=== PATIENT | male | born 1955 | race Caucasian/White ===

== ENCOUNTER 2018-01-19 17:42 | Inpatient (IN) | payer OTHER ==
[~2018-01-19] VITALS: Ht 190.5 cm; Wt 122.2 kg
[2018-01-19 20:43] LABS: BASOPHIL % 0.5 % (0-2); PLATELET COUNT 264 x10^3mcL (130-400); RED CELL DISTRIBUTION WIDTH 14.1 % (11.5-14.5)
[2018-01-19 21:04] LABS: AMPHETAMINE QUAL UR NONE DETECTED (NEG <=1000)
[2018-01-19 21:10] LABS: ALKALINE PHOSPHATASE 72 U/L (46-116); ALT/SGPT 30 U/L (16-63); AST/SGOT 24 U/L (15-37); BILIRUBIN TOTAL 1.04 mg/dL (0.20-1.00); CARBON DIOXIDE 28.9 mmol/L (21-32); CHLORIDE SERUM 100 mmol/L (98-107); CREATININE SERUM 1.1 mg/dL (0.7-1.3); GFR1 > 60 mL/min; GLUCOSE SERUM 134 mg/dL (74-106); SODIUM SERUM 141 mmol/L (136-145); TOTAL PROTEIN, SERUM 6.9 g/dL (6.4-8.2)
[2018-01-19 21:16] LABS: ALBUMIN 2.2 g/dL (3.4-5.0)
[2018-01-19 21:17] LABS: POTASSIUM SERUM 2.9 mmol/L (3.5-5.1)
[2018-01-19] MEDS ORDERED: GOOD SENSE OMEP20 MG PO (22:01)
[2018-01-19] MEDS ORDERED: LISINOPRIL40 MG PO (22:01)
[2018-01-19] MEDS ORDERED: HYDROCHLOROTHIA25 MG PO (22:01)
[2018-01-19] MEDS ORDERED: ASPIR 8181 MG PO (22:01)
[2018-01-19] MEDS ORDERED: CARVEDILOL25 M1 PO (22:02)
[2018-01-19] MEDS ORDERED: ATORVASTATIN CA40 M1 PO (22:02)
[2018-01-19] MEDS ORDERED: METFORMIN HYD1000 M2 PO (22:02)
[2018-01-19] MEDS ORDERED: DULERA1 AR3 INH (22:03)
[2018-01-19] MEDS ORDERED: NITROSTAT0.4 MG (22:04)
[2018-01-19] MEDS ORDERED: [UNRECOGNIZED DRUG - OTHER] PO (22:04)
[2018-01-19] MEDS ORDERED: APAP325 MG PO (22:04)
[2018-01-19] MEDS ORDERED: LYRICA75 M1 PO (22:05)
[2018-01-19] MEDS ORDERED: XOPENEX HF0.045 MG/1 INH (22:05)
[2018-01-19 23:33] VITALS: BP 144/91
[2018-01-19 23:44] VITALS: Ht 190.5 cm; Wt 122.2 kg
[2018-01-20] VITALS (9 sets, daily range): BP systolic 92–141; BP diastolic 65–88
[2018-01-20 06:21] LABS: BASOPHIL % 0.2 % (0-2); PLATELET COUNT 250 x10^3mcL (130-400); RED CELL DISTRIBUTION WIDTH 13.9 % (11.5-14.5)
[2018-01-20 06:46] LABS: ALKALINE PHOSPHATASE 67 U/L (46-116); ALT/SGPT 26 U/L (16-63); AST/SGOT 20 U/L (15-37); BILIRUBIN TOTAL 0.8 mg/dL (0.20-1.00); CALCIUM 8.7 mg/dL (8.5-10.1); CARBON DIOXIDE 29.2 mmol/L (21-32); CHLORIDE SERUM 100 mmol/L (98-107); CREATININE SERUM 1.2 mg/dL (0.7-1.3); GFR1 > 60 mL/min; GLUCOSE SERUM 132 mg/dL (74-106); POTASSIUM SERUM 3.1 mmol/L (3.5-5.1); SODIUM SERUM 139 mmol/L (136-145); TOTAL PROTEIN, SERUM 6.5 g/dL (6.4-8.2)
[2018-01-20 07:55] LABS: ERYTHROCYTE SED RATE 90 mm/hr (0-20)
[2018-01-21 05:48] LABS: BASOPHIL % 0.3 % (0-2); PLATELET COUNT 244 x10^3mcL (130-400); RED CELL DISTRIBUTION WIDTH 13.8 % (11.5-14.5)
[2018-01-21 06:03] LABS: CALCIUM 8.5 mg/dL (8.5-10.1); CARBON DIOXIDE 29.4 mmol/L (21-32); CHLORIDE SERUM 105 mmol/L (98-107); CREATININE SERUM 1.1 mg/dL (0.7-1.3); GFR1 > 60 mL/min; GLUCOSE SERUM 129 mg/dL (74-106); POTASSIUM SERUM 3.8 mmol/L (3.5-5.1); SODIUM SERUM 141 mmol/L (136-145)
[2018-01-21 06:36] VITALS: BP 138/89
[2018-01-21 09:07] LABS: RHEUMATOID ARTHRITIS FACTOR 16.8 IU/mL (0.0-13.9)
[2018-01-21 09:30] VITALS: BP 93/65
[2018-01-21 13:59] VITALS: BP 113/70
[2018-01-21 21:20] VITALS: BP 146/87
[2018-01-22 05:19] VITALS: BP 143/91
[2018-01-22 07:23] LABS: BASOPHIL % 0.4 % (0-2); PLATELET COUNT 262 x10^3mcL (130-400)
[2018-01-22 07:24] LABS: CALCIUM 8.6 mg/dL (8.5-10.1); CARBON DIOXIDE 27.7 mmol/L (21-32); CHLORIDE SERUM 107 mmol/L (98-107); GFR1 > 60 mL/min; GLUCOSE SERUM 149 mg/dL (74-106); POTASSIUM SERUM 3.6 mmol/L (3.5-5.1); SODIUM SERUM 143 mmol/L (136-145)
[2018-01-22 13:15] VITALS: BP 127/86
[2018-01-22 17:57] VITALS: BP 140/94
[2018-01-22 22:03] VITALS: BP 142/89
[2018-01-22 23:45] VITALS: BP 141/95
[2018-01-23 04:13] LABS: RAPID PLASMA REAGIN Non Reactive (Non Reactive)
[2018-01-23 06:05] VITALS: BP 145/84
[2018-01-23 10:10] VITALS: BP 159/101
[2018-01-23 13:20] VITALS: BP 157/100
[2018-01-23 18:09] VITALS: BP 153/86
[2018-01-23 21:47] VITALS: BP 158/99
[2018-01-24 06:06] VITALS: BP 175/98
[2018-01-24 09:26] VITALS: BP 176/97
[2018-01-24 11:07] LABS: CALCIUM 8.1 mg/dL (8.5-10.1); CARBON DIOXIDE 23.8 mmol/L (21-32); CHLORIDE SERUM 107 mmol/L (98-107); CREATININE SERUM 0.8 mg/dL (0.7-1.3); GFR1 > 60 mL/min; GLUCOSE SERUM 145 mg/dL (74-106); POTASSIUM SERUM 4.2 mmol/L (3.5-5.1); SODIUM SERUM 141 mmol/L (136-145)
[2018-01-24 13:25] VITALS: BP 136/88
[2018-01-24 17:28] VITALS: BP 136/88
[2018-01-24 17:42] VITALS: BP 154/89
[2018-01-24 20:01] VITALS: BP 136/92
== END 2018-01-24 21:04 | disposition other institution (70) | DRG 312 ==
LOC: ED 17:42 → DU 22:14
PROVIDERS: Emergency Medicine; Internal Medicine
DX: R55 Syncope and collapse (principal); I24.9 Acute ischemic heart disease, unspecified; I25.10 Atherosclerotic heart disease of native coronary artery without angina pectoris; I10 Essential (primary) hypertension; E87.6 Hypokalemia; E11.9 Type 2 diabetes mellitus without complications; Z95.0 Presence of cardiac pacemaker
CPT/HCPCS: 82962; 83880; 86431; 97110-GP; A9500; J1650; J1885; J2270; J2785; J3475; Q0092